=== PATIENT | female | born 1950 | race Caucasian/White ===

== ENCOUNTER 2018-07-20 05:59 | Inpatient (IN) | payer OTHER ==
[2018-06-29 08:23] VITALS: BMI 35.4
[2018-07-20] MEDS ORDERED: GABAPENTIN 300 MG CAPSULE (FP) PO ONE (06:23)
[2018-07-20] MEDS ORDERED: TRANEXAMIC ACID 1000 MG/10 ML VIAL IVPUSH ONE (06:23)
[2018-07-20] MEDS ORDERED: oxyCODONE HCL 10 MG SUSTAINED ACTING TABLET PO ONE (06:23)
[2018-07-20] MEDS ORDERED: BUPIVACAINE HCL/PF 0.5% (5MG/ML) 10 ML VIAL ONE (07:02)
[2018-07-20] MEDS ORDERED: VANCOMYCIN 1,000 MG VIAL (RESTRICTED TO ID ONLY) ONE (07:17)
[2018-07-20] MEDS ORDERED: ceFAZolin SODIUM 1 GM VIAL ONE ×2 (07:17→08:21)
[2018-07-20] MEDS ORDERED: MIDAZOLAM HCL 2 MG/2 ML SINGLE DOSE VIAL ONE (07:31)
[2018-07-20] MEDS ORDERED: BUPIVACAINE LIPOSOME/PF (EXPAREL) 266 MG/20 ML VIAL ONE (07:31)
[2018-07-20] MEDS ORDERED: SUCCINYLCHOLINE CHLORIDE 200 MG/10 ML VIAL ONE (07:50)
[2018-07-20] MEDS ORDERED: ePHEDrine SULFATE 50 MG/1 ML AMPULE ONE (07:50)
--- NOTE | 2018-07-20 07:57 | HP ---
[facility] - Chief Complaint Chief Complaint: left knee pain - Past Medical History Allergies/Adverse Reactions: Allergies Allergy/AdvReac Type Severity Reaction Status Date / Time NSAIDS (Non-Steroidal Allergy Severe Bleeding Verified 06/29/18 08:13 Anti-Inflamma ulcers Penicillins Allergy Severe angioedema Verified 06/29/18 08:13 - Current Medications Current Medications: Home Medications Medication Instructions Recorded Cholecalciferol (Vitamin D3) 2,000 unit PO DAILY tablet 07/21/13 [Vitamin D3] Multivitamin [Multivitamins] 1 each PO DAILY tablet 07/21/13 Docusate Sodium [Colace -] 100 mg PO DAILY PRN 05/20/16 Ferrous Sulfate 324 mg PO DAILY 09/11/16 Diltiazem HCl [Diltiazem 24Hr Cd] 180 mg PO DAILY 06/29/18 Famotidine [Pepcid] 40 mg PO DAILY 06/29/18 Levothyroxine [Synthroid -] 50 mcg PO DAILY 06/29/18 Vit C/Vit E AC/Lut/Copper/Zinc 1 each PO DAILY 06/29/18 [Preservision Softgel] Satellite Physical Exam - Physical Examination Vital Signs: Vital Signs Period Temp Pulse Resp BP Sys/Nixon Pulse Ox Last 24 Hr 98.7 F 66 18 127/86 General Appearance: Well Nourished, Well Developed, Alert & Oriented x3 ENT: Clear Lung: Normal air movement Heart: Regular rate & rhythm Extremities: Other (left knee- + swelling, + ttp, decr rom, nvi xrays show grade 4 tricompartmental djd) Neurological: Intact, Alert, Oriented Satellite Impression/Plan - Impression/Plan Impression: left knee djd Operative Procedure: left werner tkr Date to be Performed: 07/20/18
[2018-07-20] MEDS ORDERED: PROPOFOL 20 ML ONE ×4 (08:24)
[2018-07-20] MEDS ORDERED: VANCOMYCIN 1,000 MG VIAL (RESTRICTED TO ID ONLY) IVPB ONE (09:20)
[2018-07-20] MEDS ORDERED: DOCUSATE SODIUM 100 MG CAPSULE (FP) PO PRN (09:46)
[2018-07-20] MEDS ORDERED: ONDANSETRON 4 MG/2 ML VIAL IVPUSH PRN (09:47)
[2018-07-20] MEDS ORDERED: MAGNESIUM HYDROX 2400MG/30ML ORAL SUSPENSION 30 ML CUP PO PRN (09:47)
[2018-07-20] MEDS ORDERED: MAG HYDROX/AL HYDROX/SIMETH 30 ML UNIT-DOSE CUP PO PRN (09:47)
--- NOTE | 2018-07-20 09:49 | OP ---
Operative Note - Note: Operative Date: 07/20/18 (lucio) Pre-Operative Diagnosis: left knee djd Operation: left werner tkr Post-Operative Diagnosis: Same as Pre-op Surgeon: Antonio Lara Automation Controls Engineer: Santo Brewer Anesthesiologist/SOA INTEGRATION ARCHITECT: Chintan Martínez Anesthesia: Spinal, Local Specimens Removed: bone fragments Estimated Blood Loss (mls): 150 Operative Report Dictated: Yes
[2018-07-20] MEDS ORDERED: LACTATED RINGERS SOLUTION 1,000 ML IV SCH (10:00)
[2018-07-20] MEDS ORDERED: PANTOPRAZOLE 40 MG TABLET (FP) PO SCH (10:00)
[2018-07-20] MEDS ORDERED: oxyCODONE HCL 5 MG TABLET PO PRN (10:05)
[2018-07-20] MEDS ORDERED: ACETAMINOPHEN 325 MG TABLET (FP) PO ONE (10:32)
[2018-07-20] MEDS: oxyCODONE HCL 5 MG TABLET PO PRN ×2 (11:33→20:17)
--- NOTE | 2018-07-20 14:07 | SPEC ---
DATE OF OPERATION: 07/20/2018 PREOPERATIVE DIAGNOSIS: Degenerative joint disease, left knee. POSTOPERATIVE DIAGNOSIS: Degenerative joint disease, left knee. PROCEDURE: Left total knee replacement with robotic-assisted navigation (MAKOplasty). SURGICAL ATTENDING: Antonio Lara MD HUMAN RESOURCES VICE PRESIDENT: KATHLEEN Becker ANESTHESIA: Regional and spinal. CLOSURE: A Triathlon Press-Fit knee system with a 3 femur, a 3 tibia, a 9 polyethylene, 32 patella; No. 1 Vicryl, fascia; 0 and 2-0, subcutaneous; and 3-0 Monocryl, subcuticular with skin glue for skin; 4-0 undyed Vicryl for pin sites. ESTIMATED BLOOD LOSS: Less than 100 mL. COMPLICATIONS: None. CONDITION: To recovery room in stable condition. DESCRIPTION OF OPERATIVE PROCEDURE: Patient was taken to the operating room on July 20, 2018. Regional and spinal anesthesia was administered by the anesthesiologist. IV Kefzol was administered prophylactically prior to the case as well as TXA. The left lower extremity was prepped and draped in the usual sterile fashion. The midline 10- to 12-cm longitudinal incision was made. Hemostasis was achieved with Bovie cautery. Sharp dissection was carried down to the extensor mechanism which was perform the procedure. Medial parapatellar arthrotomy was then performed, leaving a cuff of tissue for later closure. The patella was inverted and the knee was flexed up. The fat pad was excised. Subperiosteal dissection was done on the anteromedial proximal tibia until the knee was able to be brought forward. This was facilitated by taking the ACL, PCL and medial and lateral menisci. Checkpoints were placed in both the femur and in the tibia. Two parallel threaded pins were drilled superior to the knee joint through the already made incision from anterior to posterior just going through the anterior cortex but just engaging but not going through the posterior cortex. Two threaded pins were drilled through 2 small stab incisions in parallel fashion 1 handbreadth below the tibial tubercle through the anterior cortex of the tibia and engaging but not going through the posterior cortex. Both sets of pins were attached to navigation arrays for the MIGNON system. The knee was then registered with the navigation system with center of rotation of the hip, medial and lateral malleoli and multiple sites both on the tibia and on the femur. Confirmation of excellent registration was confirmed by "popping the bubbles." At this time, the knee was thoroughly inspected to remove all osteophytes around the knee. The knee was then tensioned in varus/valgus at both full extension and at 90 degrees of flexion to ascertain our gaps. The virtual position of the components was optimized to ensure equal gaps throughout the range of motion. Once this was performed, the robot was brought into the field, was registered. The bone was cut as per the specifications on both the tibia and on the femur. The box cuts were then made as well. Excellent trial stability was obtained on the femur. The tibial baseplate was allowed to "find itself" and then was clipped into place. Confirmation of excellent external rotation of that component was confirmed by the navigation device as well.The patella was calibered for thickness and cut at the appropriate level. The appropriate lollipop was used to drill 3 holes in the patella and a trial asymmetric patellar button was applied. The knee was taken through a range of motion and found to have excellent stability from full extension to full flexion with excellent tracking of the patella. The trial components were then removed. The lug holes were drilled in the femur. The cementless keel was punched in the tibia. The real Press-Fit components were malleted into place, first with the tibia and then with the femur, and then the patella was crimped into place as well. The real polyethylene liner was then clipped into place. Range of motion, stability and tracking were as described earlier. The knee was thoroughly irrigated with copious amounts of irrigation. Vancomycin powder was placed inside the joint. The medial parapatellar arthrotomy was then closed using No. 1 Vicryl interrupted suture. Post closure of the arthrotomy, the knee was taken through a range of motion and found to have no undue tension on the repair. The subcutaneous was then pulse antibiotic irrigated, closed with 0 and 2-0 Vicryl and 3-0 Monocryl subcuticular with skin glue for the skin. Prior to closure, the checkpoints were removed as were the threaded pins. The tibial pin sites were closed with 4-0 undyed Vicryl. A sterile pressure Aquacel dressing was applied. No tourniquet was used during the case. The total blood loss was less than 100 mL. No complication. Patient was transferred to recovery in stable condition. Kateryna [id number]
[2018-07-20] MEDS: CEFAZOLIN 2 GM/D5W 2 GM/50 ML ML IVPB SCH ×2 (15:22→23:20)
[2018-07-20] MEDS: ACETAMINOPHEN 325 MG TABLET (FP) PO SCH ×2 (17:04→22:26)
[2018-07-20] MEDS: oxyCODONE HCL 10 MG SUSTAINED ACTING TABLET PO SCH (22:26)
[2018-07-21] MEDS: LEVOTHYROXINE NA 50 MCG TABLET (FP) PO SCH (06:03)
[2018-07-21] MEDS: ACETAMINOPHEN 325 MG TABLET (FP) PO SCH ×5 (06:04→22:23)
[2018-07-21 07:16] LABS: HEMATOCRIT 38.3 % (32.4-45.2); HEMOGLOBIN 12.8 GM/dl (10.7-15.3); MCH 31.7 pg (25.7-33.7); MCHC 33.5 g/dl (32.0-36.0); MEAN CELL VOLUME 94.7 fl (80-96); MEAN PLT VOLUME 8.6 fl (7.5-11.1); PLATELET COUNT 199 K/MM3 (134-434); RBC 4.05 M/mm3 (3.60-5.2); RDW 13.6 % (11.6-15.6); WHITE BLOOD COUNT 14.1 K/mm3 (4.0-10.8)
[2018-07-21] MEDS: FERROUS SO4 325 MG TABLET (FP) PO SCH ×2 (08:03→09:20)
[2018-07-21] MEDS: VANCOMYCIN 1 GM in D5W (PRE-DOCKED) 1,000 MG/250 ML IVPB SCH (08:03)
[2018-07-21] MEDS: MULTIVITAMINS (DAILY MVI) TABLET (FP) PO SCH ×2 (08:04→09:20)
[2018-07-21] MEDS: FAMOTIDINE 20 MG TABLET PO SCH ×2 (08:04→09:20)
--- NOTE | 2018-07-21 08:17 | PN ---
Progress Note (short form) - Note Progress Note: Post op day#1.S/p Left total knee SAMI plasty under spinal anesthesia with Adductor canal block uneventful.Patient stable and has some pain for which she is on medication.No any anesthesia related problem.Patient Dc from the anesthesia care.
--- NOTE | 2018-07-21 08:25 | PN ---
Progress Note (short form) - Note Progress Note: Ortho Pt seen and examined s/p left werner tkr pod #1 Selected Entries 07/21/18 06:00 Temperature 97.8 F Pulse Rate 79 Respiratory 19 Rate Blood Pressure 137/65 Laboratory Tests 07/21/18 07:00 WBC 14.1 H Hgb 12.8 Hct 38.3 Plt Count 199 Dressing c/d/i, calf soft, nt rom 0-30, nvi a/p PT dvt ppx pain control d/c home tomorrow if stable
[2018-07-21] MEDS: ENOXAPARIN NA (PORCINE) 40 MG/0.4 ML DISP.SYRIN SQ SCH (09:00)
[2018-07-21] MEDS: oxyCODONE HCL 10 MG SUSTAINED ACTING TABLET PO SCH ×2 (09:21→22:23)
[2018-07-22] MEDS: ACETAMINOPHEN 325 MG TABLET (FP) PO SCH ×2 (04:30→09:33)
[2018-07-22] MEDS: LEVOTHYROXINE NA 50 MCG TABLET (FP) PO SCH (06:16)
[2018-07-22 06:29] VITALS: PULSE 96; TEMP 98.3
[2018-07-22] MEDS: ENOXAPARIN NA (PORCINE) 40 MG/0.4 ML DISP.SYRIN SQ SCH (07:44)
[2018-07-22 08:18] LABS: HEMATOCRIT 36.5 % (32.4-45.2); HEMOGLOBIN 12.1 GM/dl (10.7-15.3); MCH 31.3 pg (25.7-33.7); MCHC 33.1 g/dl (32.0-36.0); MEAN CELL VOLUME 94.6 fl (80-96); MEAN PLT VOLUME 8.9 fl (7.5-11.1); PLATELET COUNT 182 K/MM3 (134-434); RBC 3.86 M/mm3 (3.60-5.2); RDW 13.3 % (11.6-15.6); WHITE BLOOD COUNT 13.8 K/mm3 (4.0-10.8)
--- NOTE | 2018-07-22 08:37 | PN ---
Progress Note (short form) - Note Progress Note: Ortho Pt seen and examined s/p left werner tkr pod #2 Selected Entries 07/22/18 06:00 Temperature 98.3 F Pulse Rate 96 H Respiratory 16 Rate Blood Pressure 142/65 Laboratory Tests 07/22/18 07:15 WBC 13.8 H Hgb 12.1 Hct 36.5 Plt Count 182 Dressing saturated, calf soft, nt rom 0-50, nvi a/p dressing changed PT dvt ppx pain control d/c home today f/u in 1 week
--- NOTE | 2018-07-22 08:38 | DS ---
Physical Examination Vital Signs: Vital Signs Temperature 98.3 F 07/22/18 06:00 Pulse Rate 96 H 07/22/18 06:00 Respiratory Rate 16 07/22/18 06:00 Blood Pressure 142/65 07/22/18 06:00 O2 Sat by Pulse Oximetry (%) 94 L 07/22/18 08:16 Labs: CBC, BMP 07/22/18 07:15 Discharge Summary Reason For Visit: OSTEOARTHRITIS Procedures: Principal: left tkr Hospital Course: admitted for elective left werner tkr, uneventful post-op, stable for d/c Condition: Good - Instructions Diet, Activity, Other Instructions: Post-op Instructions-Total Knee Replacement Call the office for a follow-up appointment in 1 week - [phone] Lovenox 40 mg SQ daily x 2 weeks. Pain medication was sent into your pharmacy. Apply Graduated Compression Stockings (TEDs) to both lower extremities- remove daily for hygiene ONLY Apply Sequential Compression Device (SCDs) to both Lower extremities remove for PT and hygiene ONLY Apply cold packs to affected area for 15 minutes every 2 hours. Physical Therapist will come to your home for the first 5 days. You will be set up with outpatient PT at your first post-operative visit. Patient may ambulate as tolerated-encourage self care (at least every 2-3 hours while awake) with walker or cane Maintain Aquacel (waterproof) dressing to operative wound (will be removed by surgeon at first office visit) Shower with Aquacel dressing in place-if Aquacel integrity compromised, remove and apply dry sterile dressing and notify Orthopedist. DO NOT SHOWER unless Orthopedists approves without Aquacel dressing CONTACT THE OFFICE FOR ANY CHANGE IN YOUR CONDITION (for example-fever greater than 102 degrees, excessive bleeding from operative site, purulent drainage, severe swelling or pain) GO TO THE EMERGENCY ROOM IF THERE IS A MEDICAL EMERGENCY Knee Precautions: * Keep a rolled towel under affected heel while in bed or chair (to keep knee in extension) * Keep affected leg elevated except during mealtimes * DO NOT PLACE PILLOW UNDER AFFECTED KNEE * If you have any questions, please do not hesitate to call the office - . Referrals: Antonio Lara MD [Staff Physician] - Disposition: VNS/HOME HEALTH CARE - Home Medications Comprehensive Discharge Medication List: Ambulatory Orders Cholecalciferol (Vitamin D3) [Vitamin D3] 2,000 unit PO DAILY tablet 07/21/13 Multivitamin [Multivitamins] 1 each PO DAILY tablet 07/21/13 Docusate Sodium [Colace -] 100 mg PO DAILY PRN 05/20/16 Ferrous Sulfate 324 mg PO DAILY 09/11/16 Diltiazem HCl [Diltiazem 24Hr Cd] 180 mg PO DAILY 06/29/18 Famotidine [Pepcid] 40 mg PO DAILY 06/29/18 Levothyroxine [Synthroid -] 50 mcg PO DAILY 06/29/18 Vit C/Vit E AC/Lut/Copper/Zinc [Preservision Lutein Softgel] 1 each PO DAILY Enoxaparin [Lovenox -] 40 mg SQ DAILY #14 disp.syrin 07/20/18 Oxycodone HCl/Acetaminophen [Percocet 5-325 mg Tablet -] 1 - 2 tab PO Q6H #50 tab MDD 8 07/20/18
[2018-07-22] MEDS: MULTIVITAMINS (DAILY MVI) TABLET (FP) PO SCH (09:31)
[2018-07-22] MEDS: FAMOTIDINE 20 MG TABLET PO SCH (09:31)
[2018-07-22] MEDS: oxyCODONE HCL 10 MG SUSTAINED ACTING TABLET PO SCH (09:32)
[2018-07-22] MEDS: FERROUS SO4 325 MG TABLET (FP) PO SCH (09:32)
[2018-07-22 09:42] VITALS: BP 124/67
--- NOTE | 2018-07-22 16:45 | PATH ---
Surgical Pathology Report Patient Name: OPAL HOU Med. Rec. #: [id number] /Age/Gender: 1950 (Age: 68) / F Account: [id number] Location: [facility] Taken: 07/20/2018 Received: 07/20/2018 Reported: 07/22/2018 Physicians: Antonio Lara M.D. Specimen(s) Received LEFT KNEE BONE Clinical History Left knee osteoarthritis Final Diagnosis BONE, KNEE, LEFT, TOTAL KNEE REPLACEMENT MAKOPLASTY: BONE WITH DEGENERATIVE JOINT DISEASE, FIBROADIPOSE TISSUE, AND SYNOVIUM. Electronically Signed Fany Matias M.D. Gross Description Received in formalin labeled "left knee bones," is an 11.0 x 10.0 x 2.3 cm aggregate of multiple irregular portions of bone and soft tissue. The tibial plateau measures 7.5 x 4.3 x 1.3 cm. There is a 1.2 cm in greatest dimension area of eburnation present. The remaining articular surfaces are huddleston-yellow and focally granular. The underlying trabecular bone is yellow and hard. Mechanical Design Drafter sections are submitted in one cassette, following decalcification. 07/21/201807/21/2018
== END 2018-07-22 11:20 | disposition home health service (06) | DRG 470 ==
LOC: FM/S 05:59
PROVIDERS: ADMIT Orthopaedic Surgery; ATTEND Orthopaedic Surgery
PROC: 8E0Y0CZ Robotic Assisted Procedure of Lower Extremity, Open Approach (ICD-10-PCS; 2018-07-20)
PROC: 0SRD0JA Replacement of Left Knee Joint with Synthetic Substitute, Uncemented, Open Approach (ICD-10-PCS; principal; 2018-07-20 08:00)
DX: M17.12 Unilateral primary osteoarthritis, left knee (principal)
CPT/HCPCS: 36415; 73560-TC-LT-FY; 85027; 88305-TC; 88311-TC; 94760; 97116-GP; 97162-GP

== ENCOUNTER 2018-12-23 07:35 | Day surgery (SDC) | payer OTHER ==
[2018-12-22 14:01] VITALS: BMI 35.4
[2018-12-23] MEDS ORDERED: PROPOFOL 20 ML ONE ×2 (07:46)
[2018-12-23] MEDS ORDERED: LIDOCAINE HCL/PF 2% SDV 5ML VIAL ONE (07:46)
[2018-12-23 09:17] VITALS: TEMP 97.7
[2018-12-23 09:32] VITALS: BP 140/74; PULSE 75
--- NOTE | 2018-12-27 16:03 | PATH ---
Surgical Pathology Report Patient Name: OPAL HOU [facility]. Rec. #: [id number] /Age/Gender: 1950 (Age: 68) / F Account: [id number] Location: [facility] Taken: 12/23/2018 Received: 12/23/2018 Reported: 12/27/2018 Physicians: Daniel Callahan M.D. Specimen(s) Received A: SECOND PORTION DUODENUM BIOPSY B: ANTRUM C: POLYP LEFT COLON Clinical History Dysphagia, family history of colon cancer Postoperative diagnosis: Gastritis, hiatal hernia, dysphagia, diverticulosis, polyp Final Diagnosis A. SECOND PORTION OF DUODENUM, BIOPSY: DUODENAL MUCOSA WITH NO PATHOLOGIC FINDINGS. B. ANTRUM, BIOPSY: MILD CHRONIC GASTRITIS. IMMUNOSTAIN IS NEGATIVE FOR H. PYLORI ORGANISMS. C. LEFT COLON, POLYP, BIOPSY: TUBULAR ADENOMA. Electronically Signed Sarah Lyons M.D. Gross Description A. Received in formalin, labeled "second portion of duodenum biopsy" are 2 huddleston, irregular portions of soft tissue averaging 0.4 cm. in greatest dimension. The specimens are submitted in toto in one cassette. B. Received in formalin, labeled "antrum biopsy" are 4 huddleston, irregular portions of soft tissue ranging from 0.2-0.5 cm. in greatest dimension. The specimens are submitted in toto in one cassette. C. Received in formalin, labeled "polyp left colon" is a huddleston, irregular portion of soft tissue measuring 0.3 cm. in greatest dimension. The specimen is submitted in toto in one cassette. 12/24/2018 saudi12/24/2018
== END 2018-12-23 09:35 | disposition home or self-care (01) ==
LOC: FASU-ENDO 07:35
PROVIDERS: ATTEND Internal Medicine Gastroenterology
PROC: 0DB98ZX Excision of Duodenum, Via Natural or Artificial Opening Endoscopic, Diagnostic (ICD-10-PCS; 2018-12-23)
PROC: 0DB68ZX Excision of Stomach, Via Natural or Artificial Opening Endoscopic, Diagnostic (ICD-10-PCS; 2018-12-23)
PROC: 0D748DZ Dilation of Esophagogastric Junction with Intraluminal Device, Via Natural or Artificial Opening Endoscopic (ICD-10-PCS; 2018-12-23)
PROC: 0DBM8ZX Excision of Descending Colon, Via Natural or Artificial Opening Endoscopic, Diagnostic (ICD-10-PCS; principal; 2018-12-23 08:37)
DX: Z12.11 Encounter for screening for malignant neoplasm of colon (principal); Z80.0 Family history of malignant neoplasm of digestive organs; D12.4 Benign neoplasm of descending colon; K57.30 Diverticulosis of large intestine without perforation or abscess without bleeding; K29.50 Unspecified chronic gastritis without bleeding; R13.10 Dysphagia, unspecified; K44.9 Diaphragmatic hernia without obstruction or gangrene
CPT/HCPCS: 88305-TC; 88342-TC

== ENCOUNTER 2021-06-03 08:12 | Emergency (ER) | payer OTHER ==
[2021-06-03 08:29] VITALS: BP 134/84; PULSE 72; TEMP 99; BMI 36.6
== END 2021-06-03 09:54 | disposition home or self-care (01) ==
LOC: FER 08:12
DX: M25.561 Pain in right knee (principal)
CPT/HCPCS: 73560-TC-RT-FY; 99283-25

== ENCOUNTER 2024-01-04 08:37 | Day surgery (SDC) | payer OTHER ==
[2023-12-29 10:14] VITALS: BMI 37.5
[2024-01-04 08:53] VITALS: RESP 18
[2024-01-04 10:11] VITALS: BP 125/60; PULSE 60; TEMP 97.9
== END 2024-01-04 10:15 | disposition home or self-care (01) ==
LOC: FASU-ENDO 08:37
PROVIDERS: ATTEND Internal Medicine Gastroenterology
PROC: 0DBH8ZX Excision of Cecum, Via Natural or Artificial Opening Endoscopic, Diagnostic (ICD-10-PCS; 2024-01-04)
PROC: 0DBK8ZX Excision of Ascending Colon, Via Natural or Artificial Opening Endoscopic, Diagnostic (ICD-10-PCS; principal; 2024-01-04 09:14)
DX: Z12.11 Encounter for screening for malignant neoplasm of colon (principal); D12.0 Benign neoplasm of cecum; K63.5 Polyp of colon; K57.30 Diverticulosis of large intestine without perforation or abscess without bleeding; Z86.010 Personal history of colon polyps; Z83.719 Family history of colon polyps, unspecified
CPT/HCPCS: 88305-TC